=== PATIENT | male | born 1970 | race Caucasian/White ===

== ENCOUNTER 2017-01-17 13:41 | Emergency (ER) | payer MEDICAID ==
[~2017-01-17] VITALS: Ht 182.9 cm; Wt 98.4 kg
[2017-01-17 13:43] VITALS: BP 137/92
== END 2017-01-17 14:43 | disposition home or self-care (01) ==
LOC: ED 14:20
DX: L20.84 Intrinsic (allergic) eczema (principal)
CPT/HCPCS: 99283

== ENCOUNTER 2018-07-24 12:00 | Emergency (ER) | payer SELFPAY ==
[~2018-07-24] VITALS: Ht 182.9 cm; Wt 85.1 kg
--- NOTE | 2018-07-24 13:02 | NUR ---
Pt to 16 from lobby
--- NOTE | 2018-07-24 13:13 | NUR ---
PT PRESENTED TO ED WITH ABD PAIN AND N/V AND DIRRHEA SINCE LAST NIGHT. PTS IS HAVING SAME SYMPTOMS. PT PLACED IN ROOM AND PLACED ON BP AND CONT. PULSE OXIMETER. PT PLACED IN CONTACT ISOLATION. ASSESSMENT COMPLETED AND AWAITING MD. CALL LIGHT IN REACH. PT AWARE OF STOOL SAMPLE NEEDED.
[2018-07-24] MEDS ORDERED: ONDANSETRON ODT 4 MG ONE (13:19)
--- NOTE | 2018-07-24 13:29 | NUR ---
RECEIVED BEDSIDE REPORT FROM HESHAM DELEON RN.
[2018-07-24] MEDS ORDERED: ONDANSETRON ODT 4 MG PO ONE (13:30)
[2018-07-24 13:39] LABS: ANION GAP 4 mmol/L (5-15); CALCIUM 8.9 mg/dL (8.5-10.1); CHLORIDE 106 mmol/L (98-107)
[2018-07-24 13:46] LABS: MICROSCOPIC NOT IND
[2018-07-24 13:48] LABS: CULTURE INDICATED? NO
--- NOTE | 2018-07-24 13:50 | NUR ---
PT RESTING ON [place]umper[employer]IE TALKING ON CELL PHONE. UA PROVIDED. SENT TO LAB.
--- NOTE | 2018-07-24 14:51 | NUR ---
PT RESTING ON GURNEY ON CELL PHONE. NO ACUTE DISTRESS NOTED. NO NEEDS REQUESTED AT THIS TIME.
[2018-07-24 14:52] VITALS: BP 98/64
[2018-07-24] MEDS ORDERED: KETOROLAC 30 MG/1 ML ONE (14:55)
[2018-07-24] MEDS ORDERED: KETOROLAC 30 MG/1 ML IM ONE (15:00)
--- NOTE | 2018-07-24 15:30 | NUR ---
Patient/Caregiver given discharge instructions and they have confirmed that they understand the instructions. Patient ambulatory with steady gait. PT LEFT WITH ALL PERSONAL BELONGINGS.
== END 2018-07-24 15:32 | disposition home or self-care (01) ==
LOC: ED 14:16
DX: R10.31 Right lower quadrant pain (principal); R10.30 Lower abdominal pain, unspecified; R11.10 Vomiting, unspecified; R19.7 Diarrhea, unspecified; F17.210 Nicotine dependence, cigarettes, uncomplicated
CPT/HCPCS: 36415; 80048; 81003; 82040; 96372; 99283; J1885; Q0162

== ENCOUNTER 2019-10-29 06:52 | Inpatient (IN) | payer OTHER ==
[~2019-10-29] VITALS: Ht 182.9 cm; Wt 83.7 kg
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
[2019-10-29] MEDS ORDERED: ONDANSETRON 2MG/ML, 2ML ONE (07:00)
[2019-10-29] MEDS ORDERED: HYDROmorphone 2 MG/ML, 1ML ONE ×2 (07:00→09:33)
[2019-10-29] MEDS ORDERED: SODIUM CHLORIDE FLUSH 10ML SYR IVF ONE (07:00)
[2019-10-29] MEDS ORDERED: ONDANSETRON 2MG/ML, 2ML IVPush ONE (07:00)
[2019-10-29] MEDS: HYDROmorphone 1 MG/ML, 1ML INJ IVPush PRN ×4 (07:04→10:39)
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
[2019-10-29] MEDS ORDERED: ALBUTEROL INHALER (07:25)
--- NOTE | 2019-10-29 07:56 | NUR ---
pt back from imaging. pt prefers to lay in left lateral position
--- NOTE | 2019-10-29 08:16 | NUR ---
PT MEDICATED PER EMAR. LAB BEDSIDE.
[2019-10-29 08:24] LABS: MEAN CORPUSCULAR HEMOGLOBIN 30.3 pg (27.5-34.5); MEAN CORPUSCULAR HGB CONC 33.3 g/dL (33.2-36.2); MEAN CORPUSCULAR VOLUME 90.8 fL (81-97); MEAN PLATELET VOLUME 7.3 fL (7.4-10.4); PLATELET COUNT 411 x10^3/uL (130-400); RED BLOOD COUNT 5.28 x10^6/uL (4.38-5.82); RED CELL DISTRIBUTION WIDTH 13.6 % (9.4-14.8)
[2019-10-29 08:33] LABS: ANION GAP 9 mmol/L (5-15); CALCIUM 8.9 mg/dL (8.5-10.1); CHLORIDE 106 mmol/L (98-107); CREATININE 1.35 mg/dL (0.7-1.3)
--- NOTE | 2019-10-29 08:50 | NUR ---
PT NOW LAYING RIGHT LATERAL POSITION.
[2019-10-29 08:52] LABS: MD YES
[2019-10-29 08:53] LABS: BAND#(MANUAL) 0.67 x10^3/uL; BANDS%(MANUAL) 3 % (0-7); EOS#(MANUAL) 0.67 x10^3/uL (0.0-0.4); EOS% (MANUAL) 3 % (1-7); LYMPH#(MANUAL) 1.12 x10^3/uL (1-3.4); LYMPHS% (MANUAL) 5 % (22-44); MONOS#(MANUAL) 1.79 x10^3/uL (0.3-2.7); MONOS% (MANUAL) 8 % (2-9); SEG#(MANUAL) 18.14 x10^3/uL (1.8-6.8); SEGS% (MANUAL) 81 % (42-75)
[2019-10-29 08:54] LABS: <PLATELET ESTIMATE> INCREASED; <PLT MORPHOLOGY> NORMAL PLT MORPH; <RBC MORPHOLOGY> NORMAL
[2019-10-29] MEDS ORDERED: SODIUM CHLORIDE FLUSH 10ML SYR IVF PRN (09:30)
--- NOTE | 2019-10-29 09:48 | NUR ---
PT TO IMAGING
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
--- NOTE | 2019-10-29 10:42 | NUR ---
PT TRANSPORTED TO FLOOR. PT LEFT WITH ALL PERSONAL BELONGINGS.
--- NOTE | 2019-10-29 10:44 | NUR ---
PT ALSO GIVEN [facility]'S NUMBER TO CALL WHEN HE GETS TO THE ROOM.
[2019-10-29 10:53] VITALS: BP 112/77
[2019-10-29] MEDS ORDERED: ONDANSETRON 2MG/ML, 2ML IVPush PRN (12:00)
[2019-10-29] MEDS ORDERED: ONDANSETRON ODT 4 MG PO PRN (12:00)
[2019-10-29] MEDS ORDERED: hydrALAzine 20 MG/ML, 1ML IVPush PRN (12:00)
[2019-10-29] MEDS ORDERED: BISACODYL 10 MG SUPP PR PRN (12:00)
[2019-10-29] MEDS ORDERED: OXYcodone IR 5MG TABLET ONE (12:24)
[2019-10-29] MEDS: FAMOTIDINE 20 MG TABLET PO SCH ×2 (12:46→19:51)
[2019-10-29] MEDS: NICOTINE 14MG/24 HR PATCH.TD24 TD SCH (12:46)
[2019-10-29] MEDS: OXYcodone IR 5MG TABLET PO PRN ×3 (12:46→23:41)
[2019-10-29] MEDS: POTASSIUM CHLORIDE 20 MEQ in LACTATED RINGERS 1,000 ML IV SCH ×2 (12:47→23:06)
[2019-10-29 14:28] VITALS: BP 115/73
[2019-10-29] MEDS: LORazepam 1MG TABLET PO PRN (15:04)
[2019-10-29] MEDS: ENOXAPARIN 40 MG/0.4 ML SQ SCH (16:19)
[2019-10-29] MEDS: morphine SULFATE 10 MG/ML, 1ML IVPush PRN ×2 (16:45→19:51)
[2019-10-29] MEDS: CYCLOBENZAPRINE 10 MG TABLET PO PRN (18:03)
[2019-10-29] MEDS: ACETAMINOPHEN 325 MG TABLET PO PRN (19:50)
[2019-10-29 20:26] VITALS: BP 103/63
[2019-10-30 01:25] VITALS: BP 109/64
[2019-10-30] MEDS: CYCLOBENZAPRINE 10 MG TABLET PO PRN ×2 (01:25→12:16)
[2019-10-30] MEDS: LORazepam 1MG TABLET PO PRN ×2 (01:25→08:50)
[2019-10-30] MEDS: morphine SULFATE 10 MG/ML, 1ML IVPush PRN (01:58)
[2019-10-30 01:59] LABS: MICROSCOPIC NOT IND
[2019-10-30 05:38] LABS: BASOPHILS # (AUTO) 0.06 x10^3/uL (0-0.1); BASOPHILS % (AUTO) 1 % (0-1); EOSINOPHILS # (AUTO) 0.14 x10^3/uL (0-0.4); EOSINOPHILS % (AUTO) 2 % (1-7); LYMPHOCYTES # (AUTO) 1.52 x10^3/uL (1-3.4); LYMPHOCYTES % (AUTO) 19 % (22-44); MD NO; MEAN CORPUSCULAR HEMOGLOBIN 30.2 pg (27.5-34.5); MEAN CORPUSCULAR HGB CONC 33.3 g/dL (33.2-36.2); MEAN CORPUSCULAR VOLUME 90.9 fL (81-97); MEAN PLATELET VOLUME 7.8 fL (7.4-10.4); MONOCYTES % (AUTO) 11 % (2-9); NEUTROPHILS # (AUTO) 5.61 x10^3/uL (1.8-6.8); NEUTROPHILS % (AUTO) 68 % (42-75); PLATELET COUNT 305 x10^3/uL (130-400); RED BLOOD COUNT 4.34 x10^6/uL (4.38-5.82); RED CELL DISTRIBUTION WIDTH 13.8 % (9.4-14.8)
[2019-10-30 05:50] LABS: ALBUMIN 3.2 g/dL (3.4-5.0); ANION GAP 6 mmol/L (5-15); CALCIUM 8.1 mg/dL (8.5-10.1); CHLORIDE 104 mmol/L (98-107)
[2019-10-30 05:59] LABS: ALANINE AMINOTRANSFERASE 24 U/L (12-78); ALKALINE PHOSPHATASE 72 U/L (45-117); CHOL/HDL RATIO 4.6; CHOLESTEROL, TOTAL 179 mg/dL (140-239); CREATININE 0.93 mg/dL (0.7-1.3); HDL CHOL % 22 % (26-37); HDL CHOLESTEROL (DIRECT) 39 mg/dL (40-60); LDL CHOLESTEROL,CALCULATED 115 mg/dL (54-169); LDL/HDL RATIO 2.9 (0.5-3.0); TOTAL PROTEIN 6.4 g/dL (6.4-8.2); TRIGLYCERIDES 123 mg/dL (50-200); VLDL CHOLESTEROL 25 mg/dL (0-25)
[2019-10-30 08:08] VITALS: BP 114/70
[2019-10-30] MEDS: FAMOTIDINE 20 MG TABLET PO SCH ×2 (08:30→20:24)
[2019-10-30] MEDS: OXYcodone IR 5MG TABLET PO PRN ×3 (08:31→16:27)
[2019-10-30] MEDS: ACETAMINOPHEN 325 MG TABLET PO PRN (08:31)
[2019-10-30] MEDS ORDERED: METHOCARBAMOL 750 MG TABLET ONE (08:46)
[2019-10-30] MEDS: METHOCARBAMOL 750 MG TABLET PO PRN ×2 (08:50→16:27)
[2019-10-30] MEDS: HYDROmorphone 1 MG/ML, 1ML INJ IV PRN ×2 (10:47→13:50)
[2019-10-30] MEDS: POTASSIUM CHLORIDE 20 MEQ in LACTATED RINGERS 1,000 ML IV SCH ×2 (12:04→23:29)
[2019-10-30] MEDS: NICOTINE 14MG/24 HR PATCH.TD24 TD SCH (12:04)
[2019-10-30 12:57] VITALS: BP 106/71
[2019-10-30] MEDS: ENOXAPARIN 40 MG/0.4 ML SQ SCH (16:27)
[2019-10-30 19:10] VITALS: BP 111/68
[2019-10-31] MEDS: OXYcodone IR 5MG TABLET PO PRN ×3 (00:06→23:07)
[2019-10-31 04:03] VITALS: BP 97/59
[2019-10-31 04:31] LABS: BASOPHILS # (AUTO) 0.03 x10^3/uL (0-0.1); BASOPHILS % (AUTO) 0 % (0-1); EOSINOPHILS # (AUTO) 0.09 x10^3/uL (0-0.4); EOSINOPHILS % (AUTO) 1 % (1-7); LYMPHOCYTES # (AUTO) 1.14 x10^3/uL (1-3.4); LYMPHOCYTES % (AUTO) 12 % (22-44); MD NO; MEAN CORPUSCULAR HEMOGLOBIN 30.1 pg (27.5-34.5); MEAN CORPUSCULAR HGB CONC 32.8 g/dL (33.2-36.2); MEAN CORPUSCULAR VOLUME 91.7 fL (81-97); MEAN PLATELET VOLUME 7.6 fL (7.4-10.4); MONOCYTES # (AUTO) 0.77 x10^3/uL (0.2-0.8); MONOCYTES % (AUTO) 8 % (2-9); NEUTROPHILS # (AUTO) 7.41 x10^3/uL (1.8-6.8); NEUTROPHILS % (AUTO) 79 % (42-75); PLATELET COUNT 305 x10^3/uL (130-400); RED BLOOD COUNT 4.14 x10^6/uL (4.38-5.82)
[2019-10-31 04:39] LABS: ANION GAP 7 mmol/L (5-15); CALCIUM 8.1 mg/dL (8.5-10.1); CHLORIDE 102 mmol/L (98-107); CREATININE 0.75 mg/dL (0.7-1.3)
[2019-10-31 06:51] VITALS: BP 128/63
[2019-10-31] MEDS: FAMOTIDINE 20 MG TABLET PO SCH ×2 (08:17→21:00)
[2019-10-31] MEDS: HYDROmorphone 1 MG/ML, 1ML INJ IV PRN ×2 (11:02→17:53)
[2019-10-31] MEDS: LORazepam 1MG TABLET PO PRN ×3 (11:08→23:05)
[2019-10-31 13:27] VITALS: BP 132/64
[2019-10-31] MEDS: NICOTINE 14MG/24 HR PATCH.TD24 TD SCH (15:18)
[2019-10-31] MEDS: ENOXAPARIN 40 MG/0.4 ML SQ SCH (17:53)
[2019-10-31 18:36] VITALS: BP 96/55
[2019-11-01 02:09] VITALS: BP 99/59
[2019-11-01 05:26] LABS: BASOPHILS # (AUTO) 0.02 x10^3/uL (0-0.1); BASOPHILS % (AUTO) 0 % (0-1); EOSINOPHILS # (AUTO) 0.15 x10^3/uL (0-0.4); EOSINOPHILS % (AUTO) 2 % (1-7); LYMPHOCYTES # (AUTO) 0.99 x10^3/uL (1-3.4); LYMPHOCYTES % (AUTO) 11 % (22-44); MD NO; MEAN CORPUSCULAR HGB CONC 33.2 g/dL (33.2-36.2); MEAN CORPUSCULAR VOLUME 90.4 fL (81-97); MEAN PLATELET VOLUME 7.1 fL (7.4-10.4); MONOCYTES # (AUTO) 0.84 x10^3/uL (0.2-0.8); MONOCYTES % (AUTO) 9 % (2-9); NEUTROPHILS # (AUTO) 7.11 x10^3/uL (1.8-6.8); NEUTROPHILS % (AUTO) 78 % (42-75); PLATELET COUNT 299 x10^3/uL (130-400); RED BLOOD COUNT 4.07 x10^6/uL (4.38-5.82); RED CELL DISTRIBUTION WIDTH 12.8 % (9.4-14.8)
[2019-11-01 05:43] LABS: CHLORIDE 103 mmol/L (98-107)
[2019-11-01 06:45] VITALS: BP 99/60
[2019-11-01 08:57] LABS: ANION GAP 9 mmol/L (5-15); CALCIUM 8.1 mg/dL (8.5-10.1); CREATININE 0.67 mg/dL (0.7-1.3)
[2019-11-01] MEDS: FAMOTIDINE 20 MG TABLET PO SCH ×3 (09:33→21:00)
[2019-11-01] MEDS: OXYcodone IR 5MG TABLET PO PRN ×2 (09:51→16:01)
[2019-11-01] MEDS: HYDROmorphone 1 MG/ML, 1ML INJ IV PRN ×2 (10:07→16:32)
[2019-11-01] MEDS: NICOTINE 14MG/24 HR PATCH.TD24 TD SCH (12:45)
[2019-11-01 13:40] VITALS: BP 118/75
[2019-11-01] MEDS ORDERED: ALBUMIN HUMAN 25% 100 ML IV ONE (15:30)
[2019-11-01] MEDS ORDERED: POTASSIUM CHLORIDE 20 MEQ TAB.ER.PRT PO ONE (15:30)
[2019-11-01] MEDS ORDERED: SODIUM CHLORIDE 0.9%, 500ML IVBOLUS ONE (15:30)
[2019-11-01] MEDS: METHOCARBAMOL 750 MG TABLET PO PRN (16:05)
[2019-11-01 16:54] LABS: INTERNATIONAL NORMALIZED RATIO 0.94 (0.93-1.1)
[2019-11-01 19:04] VITALS: BP 99/64
[2019-11-02] MEDS: OXYcodone IR 5MG TABLET PO PRN ×5 (01:25→21:45)
[2019-11-02] MEDS: LORazepam 1MG TABLET PO PRN ×2 (01:26→21:44)
[2019-11-02 01:38] VITALS: BP 108/74
[2019-11-02 05:16] LABS: BASOPHILS # (AUTO) 0.03 x10^3/uL (0-0.1); BASOPHILS % (AUTO) 0 % (0-1); EOSINOPHILS % (AUTO) 2 % (1-7); LYMPHOCYTES # (AUTO) 1.25 x10^3/uL (1-3.4); LYMPHOCYTES % (AUTO) 15 % (22-44); MD NO; MEAN CORPUSCULAR HEMOGLOBIN 30.5 pg (27.5-34.5); MEAN CORPUSCULAR HGB CONC 33.6 g/dL (33.2-36.2); MEAN CORPUSCULAR VOLUME 90.7 fL (81-97); MEAN PLATELET VOLUME 7.6 fL (7.4-10.4); MONOCYTES # (AUTO) 0.79 x10^3/uL (0.2-0.8); MONOCYTES % (AUTO) 9 % (2-9); NEUTROPHILS # (AUTO) 6.16 x10^3/uL (1.8-6.8); NEUTROPHILS % (AUTO) 73 % (42-75); PLATELET COUNT 316 x10^3/uL (130-400); RED BLOOD COUNT 3.89 x10^6/uL (4.38-5.82)
[2019-11-02 05:18] LABS: ANION GAP 7 mmol/L (5-15); CALCIUM 8.4 mg/dL (8.5-10.1); CHLORIDE 106 mmol/L (98-107)
[2019-11-02] MEDS ORDERED: OXYcodone 5 MG/5 ML ORAL.SOL UDC ONE (05:49)
[2019-11-02] MEDS: METHOCARBAMOL 750 MG TABLET PO PRN (05:52)
[2019-11-02 08:00] VITALS: BP 110/71
[2019-11-02] MEDS: FAMOTIDINE 20 MG TABLET PO SCH ×2 (09:22→21:45)
[2019-11-02] MEDS: NICOTINE 14MG/24 HR PATCH.TD24 TD SCH (11:24)
[2019-11-02 12:47] VITALS: BP 106/72
[2019-11-02] MEDS: ENOXAPARIN 40 MG/0.4 ML SQ SCH (18:22)
[2019-11-02 19:21] VITALS: BP 101/65
[2019-11-03 01:37] VITALS: BP 92/57
[2019-11-03] MEDS: METHOCARBAMOL 750 MG TABLET PO PRN ×3 (02:39→21:00)
[2019-11-03] MEDS: OXYcodone IR 5MG TABLET PO PRN ×3 (06:42→17:20)
[2019-11-03 08:00] VITALS: BP 115/77
[2019-11-03] MEDS: FAMOTIDINE 20 MG TABLET PO SCH ×2 (09:00→21:00)
[2019-11-03] MEDS: NICOTINE 14MG/24 HR PATCH.TD24 TD SCH (12:00)
[2019-11-03 12:55] VITALS: BP 97/65
[2019-11-03] MEDS: ENOXAPARIN 40 MG/0.4 ML SQ SCH (18:09)
[2019-11-03 20:54] VITALS: BP 95/60
[2019-11-03] MEDS: TRAZODONE 50MG TABLET PO PRN (21:00)
[2019-11-03] MEDS: LORazepam 1MG TABLET PO PRN (21:01)
[2019-11-04 08:09] VITALS: BP 106/67
[2019-11-04] MEDS: ESCITALOPRAM 10MG TABLET PO SCH (08:59)
[2019-11-04] MEDS: FAMOTIDINE 20 MG TABLET PO SCH ×2 (09:00→20:51)
[2019-11-04] MEDS: OXYcodone IR 5MG TABLET PO PRN ×3 (09:00→20:50)
[2019-11-04] MEDS: NICOTINE 14MG/24 HR PATCH.TD24 TD SCH (12:00)
[2019-11-04 12:12] VITALS: BP 114/73
[2019-11-04] MEDS: ENOXAPARIN 40 MG/0.4 ML SQ SCH (18:03)
[2019-11-04 18:40] VITALS: BP 111/64
[2019-11-04] MEDS: METHOCARBAMOL 750 MG TABLET PO PRN (20:50)
[2019-11-04] MEDS: LORazepam 1MG TABLET PO PRN (20:50)
[2019-11-04] MEDS: TRAZODONE 50MG TABLET PO PRN (20:50)
[2019-11-05 02:06] VITALS: BP 101/59
[2019-11-05] MEDS: OXYcodone IR 5MG TABLET PO PRN ×5 (05:27→21:46)
[2019-11-05] MEDS: POLYETHYLENE GLYCOL 17 GM PACKET PO PRN (05:30)
[2019-11-05 05:34] LABS: BASOPHILS # (AUTO) 0.04 x10^3/uL (0-0.1); BASOPHILS % (AUTO) 1 % (0-1); EOSINOPHILS # (AUTO) 0.26 x10^3/uL (0-0.4); EOSINOPHILS % (AUTO) 4 % (1-7); LYMPHOCYTES # (AUTO) 1.33 x10^3/uL (1-3.4); LYMPHOCYTES % (AUTO) 21 % (22-44); MD NO; MEAN CORPUSCULAR HEMOGLOBIN 30.2 pg (27.5-34.5); MEAN CORPUSCULAR HGB CONC 33.2 g/dL (33.2-36.2); MEAN PLATELET VOLUME 7.7 fL (7.4-10.4); MONOCYTES # (AUTO) 0.69 x10^3/uL (0.2-0.8); MONOCYTES % (AUTO) 11 % (2-9); NEUTROPHILS # (AUTO) 4.12 x10^3/uL (1.8-6.8); NEUTROPHILS % (AUTO) 64 % (42-75); PLATELET COUNT 444 x10^3/uL (130-400); RED BLOOD COUNT 4.24 x10^6/uL (4.38-5.82); RED CELL DISTRIBUTION WIDTH 12.8 % (9.4-14.8)
[2019-11-05 05:45] LABS: ANION GAP 8 mmol/L (5-15); CALCIUM 9.4 mg/dL (8.5-10.1); CHLORIDE 103 mmol/L (98-107); CREATININE 0.74 mg/dL (0.7-1.3)
[2019-11-05 07:35] VITALS: BP 101/67
[2019-11-05] MEDS: METHOCARBAMOL 750 MG TABLET PO PRN ×2 (08:39→17:32)
[2019-11-05] MEDS: ESCITALOPRAM 10MG TABLET PO SCH (08:39)
[2019-11-05] MEDS: FAMOTIDINE 20 MG TABLET PO SCH ×2 (08:40→21:00)
[2019-11-05] MEDS: NICOTINE 14MG/24 HR PATCH.TD24 TD SCH (12:00)
[2019-11-05 13:10] VITALS: BP 108/70
[2019-11-05] MEDS: ENOXAPARIN 40 MG/0.4 ML SQ SCH (17:32)
[2019-11-05 20:56] VITALS: BP 108/62
[2019-11-05] MEDS: LORazepam 1MG TABLET PO PRN (21:45)
[2019-11-06 02:18] VITALS: BP 99/61
[2019-11-06 05:18] LABS: BASOPHILS # (AUTO) 0.03 x10^3/uL (0-0.1); BASOPHILS % (AUTO) 1 % (0-1); EOSINOPHILS # (AUTO) 0.32 x10^3/uL (0-0.4); EOSINOPHILS % (AUTO) 5 % (1-7); LYMPHOCYTES # (AUTO) 1.72 x10^3/uL (1-3.4); LYMPHOCYTES % (AUTO) 24 % (22-44); MD NO; MEAN CORPUSCULAR HEMOGLOBIN 29.9 pg (27.5-34.5); MEAN CORPUSCULAR VOLUME 90.6 fL (81-97); MEAN PLATELET VOLUME 7.5 fL (7.4-10.4); MONOCYTES # (AUTO) 0.68 x10^3/uL (0.2-0.8); MONOCYTES % (AUTO) 10 % (2-9); NEUTROPHILS # (AUTO) 4.42 x10^3/uL (1.8-6.8); NEUTROPHILS % (AUTO) 62 % (42-75); PLATELET COUNT 494 x10^3/uL (130-400); RED BLOOD COUNT 4.17 x10^6/uL (4.38-5.82); RED CELL DISTRIBUTION WIDTH 13.2 % (9.4-14.8)
[2019-11-06 05:25] LABS: ANION GAP 4 mmol/L (5-15); CALCIUM 9.8 mg/dL (8.5-10.1); CHLORIDE 103 mmol/L (98-107)
[2019-11-06 05:26] LABS: CREATININE 0.74 mg/dL (0.7-1.3)
[2019-11-06 08:20] VITALS: BP 126/70
[2019-11-06] MEDS: ESCITALOPRAM 10MG TABLET PO SCH (08:27)
[2019-11-06] MEDS: POLYETHYLENE GLYCOL 17 GM PACKET PO PRN (08:27)
[2019-11-06] MEDS: METHOCARBAMOL 750 MG TABLET PO PRN ×2 (08:27→22:43)
[2019-11-06] MEDS: FAMOTIDINE 20 MG TABLET PO SCH ×2 (08:27→21:00)
[2019-11-06] MEDS: OXYcodone IR 5MG TABLET PO PRN ×4 (08:29→22:44)
[2019-11-06] MEDS: NICOTINE 14MG/24 HR PATCH.TD24 TD SCH (08:32)
[2019-11-06 14:20] VITALS: BP 129/76
[2019-11-06] MEDS: ENOXAPARIN 40 MG/0.4 ML SQ SCH (18:17)
[2019-11-06 19:10] VITALS: BP 119/73
[2019-11-07 03:53] VITALS: BP 92/42
[2019-11-07 07:38] VITALS: BP 99/64
[2019-11-07] MEDS: ESCITALOPRAM 10MG TABLET PO SCH (08:02)
[2019-11-07] MEDS: METHOCARBAMOL 750 MG TABLET PO PRN (08:03)
[2019-11-07] MEDS: FAMOTIDINE 20 MG TABLET PO SCH ×2 (08:03→21:17)
[2019-11-07] MEDS: OXYcodone IR 5MG TABLET PO PRN ×2 (08:04→12:03)
[2019-11-07] MEDS: NICOTINE 14MG/24 HR PATCH.TD24 TD SCH (12:04)
[2019-11-07 12:49] VITALS: BP 99/60
[2019-11-07] MEDS ORDERED: FENTANYL PF 250 MCG/5ML ONE (14:11)
[2019-11-07] MEDS ORDERED: GLYCOPYRROLATE 0.2MG/1ML, 5ML ONE (14:11)
[2019-11-07] MEDS ORDERED: DEXAMETHASONE 4 MG/ML, 1ML ONE (14:11)
[2019-11-07] MEDS ORDERED: ROCURONIUM 10MG/ML,5ML ONE (14:11)
[2019-11-07] MEDS ORDERED: MIDAZOLAM 1 MG/ML, 2ML ONE (14:11)
[2019-11-07] MEDS ORDERED: LIDOCAINE-MPF 2% ,5ML ONE (14:11)
[2019-11-07] MEDS ORDERED: PROPOFOL 10 MG/ML, 20ML ONE (14:11)
[2019-11-07] MEDS ORDERED: METHOCARBAMOL 1,000 MG in DEXTROSE 5% 100 ML IV PRN (15:00)
[2019-11-07] MEDS ORDERED: EPHEDRINE 50 MG/ML, 1ML IVPush PRN (15:00)
[2019-11-07] MEDS ORDERED: ACETAMINOPHEN 325 MG TABLET PO PRN ×2 (15:00→17:00)
[2019-11-07] MEDS ORDERED: METOCLOPRAMIDE 5 MG/ML, 2ML IVPush PRN (15:00)
[2019-11-07] MEDS ORDERED: hydrALAzine 20 MG/ML, 1ML IV PRN ×2 (15:00→17:00)
[2019-11-07] MEDS ORDERED: ALBUTEROL/IPRATROPIUM 2.5MG/0.5MG, 3 ML NPPB PRN (15:00)
[2019-11-07] MEDS ORDERED: MIDAZOLAM 1 MG/ML, 2ML IV PRN (15:00)
[2019-11-07] MEDS ORDERED: LORazepam 2 MG/ML, 1ML IVPush PRN (15:00)
[2019-11-07] MEDS ORDERED: HALOPERIDOL 5 MG/ML IV PRN (15:00)
[2019-11-07] MEDS ORDERED: OXYcodone 5 MG/5 ML ORAL.SOL UDC PO PRN ×2 (15:00→17:00)
[2019-11-07] MEDS ORDERED: DIAZEPAM 5 MG/ML, 2ML IVPush PRN (15:00)
[2019-11-07] MEDS ORDERED: DIPHENHYDRAMINE 50 MG/ML, 1ML IVPush PRN (15:00)
[2019-11-07] MEDS ORDERED: KETOROLAC 30 MG/1 ML IVPush PRN (15:00)
[2019-11-07] MEDS ORDERED: HYDROcodone/APAP 7.5-325MG/15ML UDC PO PRN (15:00)
[2019-11-07] MEDS ORDERED: MEPERIDINE/PF 25MG/0.5ML IVPush PRN ×2 (15:00→17:00)
[2019-11-07] MEDS ORDERED: EPHEDRINE 50 MG/ML, 1ML IM PRN (15:00)
[2019-11-07] MEDS ORDERED: ONDANSETRON 2MG/ML, 2ML IVPush PRN ×2 (15:00→17:00)
[2019-11-07] MEDS ORDERED: LABETALOL 5MG/ML, 20ML IV PRN ×2 (15:00→17:00)
[2019-11-07] MEDS ORDERED: CHLORHEXIDINE 15 ML UDC MM STA (15:22)
[2019-11-07] MEDS ORDERED: CHLORHEXIDINE 15 ML UDC ONE (15:23)
[2019-11-07] MEDS ORDERED: ROPIvacaine/PF 0.2%, 20 ML ONE ×2 (16:32→16:33)
[2019-11-07] MEDS ORDERED: ONDANSETRON 2MG/ML, 2ML ONE (16:58)
[2019-11-07] MEDS ORDERED: NEOSTIGMINE 1 MG/ML, 10ML ONE (16:58)
[2019-11-07] MEDS ORDERED: CEFAZOLIN 1,000 MG ONE (16:58)
[2019-11-07] MEDS ORDERED: HYDROmorphone 1 MG/ML, 1ML INJ IVPush PRN (17:00)
[2019-11-07] MEDS ORDERED: morphine SULFATE 10 MG/ML, 1ML IVPush PRN (17:00)
[2019-11-07] MEDS ORDERED: FENTANYL PF 100 MCG/2ML IV PRN (17:00)
[2019-11-07] MEDS: ENOXAPARIN 40 MG/0.4 ML SQ SCH (18:23)
[2019-11-07] MEDS ORDERED: FENTANYL PF 100 MCG/2ML ONE (19:27)
[2019-11-07] MEDS: FENTANYL PF 100 MCG/2ML IV PRN ×2 (19:41→19:46)
[2019-11-07] MEDS ORDERED: OXYcodone 5 MG/5 ML ORAL.SOL UDC ONE (19:44)
[2019-11-07] MEDS ORDERED: DIAZEPAM 5 MG/ML, 2ML ONE (19:44)
[2019-11-07] MEDS ORDERED: HYDROmorphone 1 MG/ML, 1ML INJ ONE ×2 (19:56→20:10)
[2019-11-07] MEDS: HYDROmorphone 1 MG/ML, 1ML INJ IVPush PRN ×4 (19:57→20:17)
[2019-11-07] MEDS ORDERED: ZOLPIDEM 5MG TABLET PO PRN (21:00)
[2019-11-07 21:24] VITALS: BP 112/70
[2019-11-07] MEDS: POTASSIUM CHLORIDE 20 MEQ in D5%-0.45% NACL 1,000 ML IV SCH (23:00)
[2019-11-07] MEDS ORDERED: DIPHENHYDRAMINE 25 MG CAPSULE PO PRN (23:00)
[2019-11-07] MEDS ORDERED: ONDANSETRON 2MG/ML, 2ML IV PRN (23:00)
[2019-11-07] MEDS ORDERED: HYDROcodone/APAP 5/325 TABLET PO PRN (23:00)
[2019-11-07] MEDS: OXYcodone/APAP 5/325MG TABLET PO PRN (23:48)
[2019-11-08] MEDS: CEFAZOLIN PMX 1GM/50ML 50 ML IVPB SCH ×2 (00:51→08:27)
[2019-11-08 00:53] VITALS: BP 111/61
[2019-11-08 03:15] VITALS: BP 100/60
[2019-11-08] MEDS: OXYcodone/APAP 5/325MG TABLET PO PRN ×4 (03:24→19:33)
[2019-11-08] MEDS: morphine SULFATE 10 MG/ML, 1ML IV PRN ×5 (04:18→09:35)
[2019-11-08] MEDS: ENOXAPARIN 40 MG/0.4 ML SQ SCH (05:20)
[2019-11-08 05:37] LABS: BASOPHILS % (AUTO) 0 % (0-1); EOSINOPHILS % (AUTO) 0 % (1-7); LYMPHOCYTES # (AUTO) 0.93 x10^3/uL (1-3.4); LYMPHOCYTES % (AUTO) 7 % (22-44); MD NO; MEAN CORPUSCULAR HEMOGLOBIN 30.4 pg (27.5-34.5); MEAN CORPUSCULAR HGB CONC 33.6 g/dL (33.2-36.2); MEAN CORPUSCULAR VOLUME 90.3 fL (81-97); MEAN PLATELET VOLUME 7.5 fL (7.4-10.4); MONOCYTES % (AUTO) 5 % (2-9); NEUTROPHILS % (AUTO) 88 % (42-75); PLATELET COUNT 598 x10^3/uL (130-400); RED BLOOD COUNT 3.93 x10^6/uL (4.38-5.82); RED CELL DISTRIBUTION WIDTH 12.4 % (9.4-14.8)
[2019-11-08 05:45] LABS: ANION GAP 9 mmol/L (5-15); CALCIUM 8.4 mg/dL (8.5-10.1); CHLORIDE 100 mmol/L (98-107)
[2019-11-08 05:47] LABS: CREATININE 0.86 mg/dL (0.7-1.3)
[2019-11-08 07:40] VITALS: BP 107/63
[2019-11-08] MEDS: KETOROLAC 30 MG/1 ML IV SCH ×2 (08:27→16:55)
[2019-11-08] MEDS: ESCITALOPRAM 10MG TABLET PO SCH (08:27)
[2019-11-08] MEDS: POTASSIUM CHLORIDE 20 MEQ in D5%-0.45% NACL 1,000 ML IV SCH (11:05)
[2019-11-08 13:52] VITALS: BP 122/68
[2019-11-08 20:22] VITALS: BP 117/70
[2019-11-09] MEDS: KETOROLAC 30 MG/1 ML IV SCH (00:30)
[2019-11-09] MEDS: POTASSIUM CHLORIDE 20 MEQ in D5%-0.45% NACL 1,000 ML IV SCH ×2 (00:33→15:05)
[2019-11-09] MEDS: OXYcodone/APAP 5/325MG TABLET PO PRN ×4 (01:05→21:41)
[2019-11-09 01:06] VITALS: BP 116/70
[2019-11-09 05:28] LABS: BASOPHILS # (AUTO) 0.05 x10^3/uL (0-0.1); BASOPHILS % (AUTO) 1 % (0-1); EOSINOPHILS # (AUTO) 0.13 x10^3/uL (0-0.4); EOSINOPHILS % (AUTO) 2 % (1-7); LYMPHOCYTES # (AUTO) 1.94 x10^3/uL (1-3.4); LYMPHOCYTES % (AUTO) 22 % (22-44); MD NO; MEAN CORPUSCULAR HEMOGLOBIN 29.6 pg (27.5-34.5); MEAN CORPUSCULAR HGB CONC 32.5 g/dL (33.2-36.2); MEAN CORPUSCULAR VOLUME 91.1 fL (81-97); MEAN PLATELET VOLUME 7.6 fL (7.4-10.4); MONOCYTES # (AUTO) 0.91 x10^3/uL (0.2-0.8); MONOCYTES % (AUTO) 10 % (2-9); NEUTROPHILS # (AUTO) 5.91 x10^3/uL (1.8-6.8); NEUTROPHILS % (AUTO) 66 % (42-75); PLATELET COUNT 560 x10^3/uL (130-400); RED BLOOD COUNT 3.93 x10^6/uL (4.38-5.82)
[2019-11-09 05:34] LABS: ANION GAP 3 mmol/L (5-15); CALCIUM 8.8 mg/dL (8.5-10.1); CHLORIDE 106 mmol/L (98-107); CREATININE 0.89 mg/dL (0.7-1.3)
[2019-11-09] MEDS: ENOXAPARIN 40 MG/0.4 ML SQ SCH (05:38)
[2019-11-09 07:29] VITALS: BP 116/66
[2019-11-09] MEDS: ESCITALOPRAM 10MG TABLET PO SCH (08:07)
[2019-11-09 13:58] VITALS: BP 118/66
[2019-11-09 20:20] VITALS: BP 115/72
[2019-11-10] MEDS: POTASSIUM CHLORIDE 20 MEQ in D5%-0.45% NACL 1,000 ML IV SCH ×2 (02:20→09:57)
[2019-11-10 02:46] VITALS: BP 114/72
[2019-11-10] MEDS: OXYcodone/APAP 5/325MG TABLET PO PRN ×5 (03:17→21:52)
[2019-11-10] MEDS: ENOXAPARIN 40 MG/0.4 ML SQ SCH (06:03)
[2019-11-10 07:43] VITALS: BP 126/77
[2019-11-10] MEDS: ESCITALOPRAM 10MG TABLET PO SCH (08:23)
[2019-11-10 14:31] VITALS: BP 114/65
[2019-11-10 19:32] VITALS: BP 116/70
[2019-11-11 02:34] VITALS: BP 116/71
[2019-11-11] MEDS: OXYcodone/APAP 5/325MG TABLET PO PRN ×4 (02:54→19:22)
[2019-11-11] MEDS: ENOXAPARIN 40 MG/0.4 ML SQ SCH (05:53)
[2019-11-11] MEDS: POTASSIUM CHLORIDE 20 MEQ in D5%-0.45% NACL 1,000 ML IV SCH ×2 (07:48→19:55)
[2019-11-11 07:51] VITALS: BP 115/75
[2019-11-11] MEDS: ESCITALOPRAM 10MG TABLET PO SCH (08:19)
[2019-11-11 13:10] VITALS: BP 106/68
[2019-11-11 18:44] VITALS: BP 110/69
[2019-11-12] MEDS: OXYcodone/APAP 5/325MG TABLET PO PRN ×5 (02:12→21:44)
[2019-11-12 02:51] VITALS: BP 109/71
[2019-11-12] MEDS: ENOXAPARIN 40 MG/0.4 ML SQ SCH (05:37)
[2019-11-12 07:15] VITALS: BP 105/69
[2019-11-12] MEDS: ESCITALOPRAM 10MG TABLET PO SCH (09:39)
[2019-11-12] MEDS: POTASSIUM CHLORIDE 20 MEQ in D5%-0.45% NACL 1,000 ML IV SCH ×2 (10:44→22:50)
[2019-11-12 14:58] VITALS: BP 109/68
[2019-11-12 19:10] VITALS: BP 110/67
[2019-11-12] MEDS ORDERED: ENOX40SY4 SQ (21:43)
[2019-11-12] MEDS ORDERED: ZOLP-413 PO (21:43)
[2019-11-12] MEDS ORDERED: DIPH25CA26 PO (21:43)
[2019-11-12] MEDS ORDERED: ESCI10TA PO (21:43)
[2019-11-12] MEDS ORDERED: OXYcodone/APAP 5/325MG PO (21:43)
[2019-11-12] MEDS ORDERED: ONDA4TAB7 PO (21:43)
[2019-11-13 01:14] VITALS: BP 117/69
[2019-11-13] MEDS: OXYcodone/APAP 5/325MG TABLET PO PRN ×5 (03:15→21:56)
[2019-11-13] MEDS: ENOXAPARIN 40 MG/0.4 ML SQ SCH (05:24)
[2019-11-13 07:05] VITALS: BP 111/69
[2019-11-13] MEDS: ESCITALOPRAM 10MG TABLET PO SCH (09:08)
[2019-11-13] MEDS: POTASSIUM CHLORIDE 20 MEQ in D5%-0.45% NACL 1,000 ML IV SCH ×2 (13:40→21:37)
[2019-11-13 14:15] VITALS: BP 128/77
[2019-11-13 18:58] VITALS: BP 112/72
[2019-11-14 03:20] VITALS: BP 110/64
[2019-11-14] MEDS: OXYcodone/APAP 5/325MG TABLET PO PRN ×5 (03:24→21:33)
[2019-11-14] MEDS: ENOXAPARIN 40 MG/0.4 ML SQ SCH (06:22)
[2019-11-14 07:48] VITALS: BP 119/78
[2019-11-14] MEDS: ESCITALOPRAM 10MG TABLET PO SCH (08:17)
[2019-11-14 12:23] VITALS: BP 112/73
[2019-11-14] MEDS: POTASSIUM CHLORIDE 20 MEQ in D5%-0.45% NACL 1,000 ML IV SCH (16:25)
[2019-11-14 20:00] VITALS: BP 117/69
[2019-11-15] MEDS: OXYcodone/APAP 5/325MG TABLET PO PRN ×3 (03:24→13:04)
[2019-11-15 03:27] VITALS: BP 113/70
[2019-11-15] MEDS: ENOXAPARIN 40 MG/0.4 ML SQ SCH (05:57)
[2019-11-15] MEDS: POTASSIUM CHLORIDE 20 MEQ in D5%-0.45% NACL 1,000 ML IV SCH (06:04)
[2019-11-15 07:15] VITALS: BP 133/72
[2019-11-15] MEDS: ESCITALOPRAM 10MG TABLET PO SCH (08:12)
[2019-11-15] MEDS ORDERED: TRAZ-96 PO (13:44)
[2019-11-15 13:48] VITALS: BP 119/72
[2019-11-15 16:00] VITALS: BP 118/82
== END 2019-11-15 15:58 | DRG 503 ==
LOC: ED 08:39 → EDIP 10:00 → 4NE 10:40
PROVIDERS: ADMIT Hospitalist; ATTEND Internal Medicine
PROC: 0QSL04Z Reposition Right Tarsal with Internal Fixation Device, Open Approach (ICD-10-PCS; principal; 2019-10-29)
DX: S32.030A Wedge compression fracture of third lumbar vertebra, initial encounter for closed fracture (principal); N17.0 Acute kidney failure with tubular necrosis; E87.1 Hypo-osmolality and hyponatremia; S82.892A Other fracture of left lower leg, initial encounter for closed fracture; S92.011A Displaced fracture of body of right calcaneus, initial encounter for closed fracture; S92.355A Nondisplaced fracture of fifth metatarsal bone, left foot, initial encounter for closed fracture; F17.210 Nicotine dependence, cigarettes, uncomplicated; F32.9 Major depressive disorder, single episode, unspecified; J45.909 Unspecified asthma, uncomplicated; J70.5 Respiratory conditions due to smoke inhalation; M12.50 Traumatic arthropathy, unspecified site; F41.9 Anxiety disorder, unspecified; W20.1XXA Struck by object due to collapse of building, initial encounter; Y93.89 Activity, other specified; Y92.098 Other place in other non-institutional residence as the place of occurrence of the external cause; Y99.8 Other external cause status
CPT/HCPCS: 36415; 72100; 72110; 73140; 73502; 73610; 73630; 73650; 76000; J3490; 71045; 72131; 80048; 80053; 80061; 81003; 82040; 82375; 83036; 83735; 84443; 85025; 85610; 85730; 86850; 86900; 87635; 93005; C1713; G0378; J0690; J1100; J1170; J1650; J1885; J2250; J2405; J2704; J2710; J2795; J3010; J3480; P9047; J2270; J7040; J7120